=== PATIENT | male | born 1990 | race Caucasian/White ===

== ENCOUNTER 2018-12-24 13:34 | Emergency (ER) | payer SELFPAY ==
--- NOTE | 2018-12-24 13:55 | UC ---
Nausea/Vomiting/Diarrhea HPI - HPI Summary HPI Summary: 28-year-old male presents with 3 day history of nausea, vomiting, diarrhea. States he has been having 45 episodes of vomiting today. Last episode was yesterday evening. States having 2-3 episodes of watery diarrhea today. Last episode was this morning. Associated with "feeling hot and cold" but denies any known fever. Denies abdominal pain, hematemesis, blood in stool, melena, back or flank pain, dysuria, frequency, urgency, or hematuria. No recent travel out of country or antibiotic use. - History of Current Complaint Chief Complaint: UCAbdominalPain Stated Complaint: stomachbug/food poisoning Time Seen by Provider: 12/24/18 13:46 Hx Obtained From: Patient Pain Intensity: 3 - Allergies/Home Medications Allergies/Adverse Reactions: Allergies Allergy/AdvReac Type Severity Reaction Status Date / Time No Known Allergies Allergy Verified 12/24/18 13:44 PMH/Surg Hx/FS Hx/Imm Hx Previously Healthy: Yes - Denies significant PMH - Surgical History Surgical History: Yes Surgery Procedure, Year, and Place: NAIL REMOVED FROM FOOT A CHILD. - Family History Known Family History: Positive: Non-Contributory - Social History Occupation: Unemployed Lives: With Family Alcohol Use: Rare Substance Use Type: Marijuana Smoking Status (MU): Never Smoked Tobacco Review of Systems All Other Systems Reviewed And Are Negative: Yes Constitutional: Positive: Chills. Negative: Fever ENT: Negative: Sore Throat Respiratory: Negative: Shortness Of Breath, Cough Cardiovascular: Negative: Palpitations, Chest Pain Gastrointestinal: Positive: Vomiting, Diarrhea, Nausea. Negative: Abdominal Pain Genitourinary: Negative: Dysuria, Hematuria, Frequency, Urgency Musculoskeletal: Positive: Negative Neurological: Positive: Negative Is Patient Immunocompromised?: No Physical Exam - Summary Physical Exam Summary: GENERAL APPEARANCE: Well developed, well nourished, alert and cooperative, and appears to be in no acute distress. EYES: Conjunctiva clear. No drainage. EARS: External auditory canals and tympanic membranes clear, hearing grossly intact. NOSE: No nasal discharge. THROAT: Pharynx normal. No tonsilar inflammation, swelling, exudate, or lesions. Uvula midline. Oral cavity normal. Teeth and gingiva in good general condition. NECK: Neck supple, non-tender without lymphadenopathy. CARDIAC: Normal S1 and S2. No S3, S4 or murmurs. Rhythm is regular. There is no peripheral edema, cyanosis or pallor. Extremities are warm and well perfused. Capillary refill is less than 2 seconds. Peripheral pulses intact. LUNGS: Clear to auscultation without rales, rhonchi, wheezing or diminished breath sounds. ABDOMEN: Positive bowel sounds. Soft, nondistended, nontender. No guarding or rebound. No masses or hepatosplenomegally. No CVA tenderness. MUSKULOSKELETAL: ROM intact to all extremities. No joint erythema or tenderness. Normal muscular development. Normal gait. SKIN: Skin normal color, texture and turgor with no lesions or eruptions. Triage Information Reviewed: Yes Vital Signs: Initial Vital Signs Temp 98 F 12/24/18 13:41 Pulse 67 12/24/18 13:41 Resp 16 12/24/18 13:41 BP 126/82 12/24/18 13:41 Pulse Ox 99 12/24/18 13:41 Vital Signs Reviewed: Yes Re-Evaluation - Re-Evaluation First Eval Re-Evaluation Time: 14:35 Change: Improved Comment: Patient states nausea subsided with ondansetron. He is taking PO fluids without any further episodes of vomiting. No episodes of diarrhea during his time in the clinic. Will discharge home to continue oral rehydration. Naus/Vom/Diarrhea Course/Dx - Course Course Of Treatment: 28-year-old male presents with 3 day history of nausea, vomiting, diarrhea. States he has been having 45 episodes of vomiting today. Last episode was yesterday evening. States having 2-3 episodes of watery diarrhea today. Last episode was this morning. Associated with "feeling hot and cold" but denies any known fever. Denies abdominal pain, hematemesis, blood in stool, melena, back or flank pain, dysuria, frequency, urgency, or hematuria. No recent travel out of country or antibiotic use. Afebrile. Vital signs stable. Exam was overall unremarkable. Patient was given ondansetron 8 mg by mouth in the clinic with improvement in his nausea. He was given a fluid challenge and able to tolerate without any further episodes of vomiting. Discussed with the patient that his symptoms are likely from a viral gastroenteritis although I cannot fully rule out other causes. Will treat conservatively with ondansetron 4 mg every 6-8 hours as needed for nausea or vomiting and recommend oral rehydration. He is to return here or follow up with primary care provider in 3 days if symptoms do not improve. Anticipatory guidance and warning symptoms were reviewed with the patient. Verbalizes understanding and agrees with plan of care. - Differential Dx/Diagnosis Differential Diagnoses - Male: Gastroenteritis (Viral), Gastroenteritis ( Bacterial), Vomiting, Diarrhea, Colitis Provider Diagnosis: Nausea, vomiting, and diarrhea Condition At Discharge: Stable Discharge - Sign-Out/Discharge Documenting (check all that apply): Patient Departure All imaging exams completed and their final reports reviewed: No Studies - Discharge Plan Condition: Stable Disposition: HOME Prescriptions: Ondansetron ODT TAB* [Zofran 4 MG Odt TAB*] 4 mg PO Q6H PRN #8 tab.odt PRN Reason: Nausea/Vomiting Patient Education Materials: Acute Nausea and Vomiting (ED), Acute Diarrhea (ED ) Forms: *Work Release Referrals: No Primary Care Phys,NOPCP [Primary Care Provider] - Additional Instructions: You were given a medication called ondansetron (Zofran) for the nausea at 2:10 pm. I have also given you a prescription to use at home. Take 1 tablet every 6- 8 hours as needed for nausea or vomiting. Drink plenty of fluids. Try to drink small amounts frequently to avoid filling your stomach to full which can cause vomiting. If you are still having vomiting, stick with a clear liquid diet including soup broths, Jello, Popsicles, and sue-rick with carbonation stirred out of it. You may then advance to a bland diet including saltine crackers, toast, bananas , rice, and applesauce. Then return to a normal diet as tolerated. Be sure to use good hand hygiene to prevent spreading infection. Follow up here or with your primary care provider in 3-5 days if symptoms persist. Seek immediate medical attention in the emergency room if you develop fever greater than 100.5 F, have severe abdominal pain, persistent vomiting, blood in your vomit or stool, or any worsening of symptoms. - Billing Disposition and Condition Condition: STABLE Disposition: Home
[2018-12-24 13:58] VITALS: BP 126/82
[2018-12-24] MEDS ORDERED: Ondansetron ODT TAB* 4 MG PO ONE (14:01)
== END 2018-12-24 14:42 | disposition home or self-care (01) ==
LOC: UCEAST 13:34
DX: R11.2 Nausea with vomiting, unspecified (principal); R19.7 Diarrhea, unspecified
CPT/HCPCS: 99202; A9270-GY; G0463